=== PATIENT | female | born 1955 | race Caucasian/White ===

== ENCOUNTER 2019-08-26 09:13 | Outpatient (CLI) | payer MEDICARE, MEDICAID, SELFPAY ==
--- NOTE | 2019-08-26 09:21 | USCV_ITS ---
Homa Dugan Age: 64 Gender: F : 1955 Exam Date: 08/26/2019 09:38 Ordering Phys: Jing Espinal Technologist: Nilo Gallego Exam Location: [facility] [place] Indication: LT ICA OCCLUDED Risk Factors: Smoker Previous Vascular Surgery: R CEA Right Brachial BP: / Left Brachial BP: / Right Left Velocity (cm/s) Spectral Plaque Velocity (cm/s) Spectral Plaque Syst/Diast Broadening Syst/Diast Broadening 69.50/ 17.60 Prox CCA 42.70 / 11.80 40.40/ 12.40 Mid CCA 44.70 / 10.50 43.50/ 14.00 Distal CCA 33.50 / 5.90 104.45/39.35 Prox ICA / 124.90/44.70 Mid ICA / 123.60/44.70 Distal ICA / 52.80 ECA 166.20 1.91 ICA/CCA Antegrade Vertebral Antegrade 43.00/ 14.00 cm/s 40.80/ 12.10 cm/s Bi Subclavian Bi 134.0 198.2 0 0 FINDINGS Comparison:. 02/26/19. Prior right CEA. No right ICA stenosis. Known occluded left ICA. Left vertebral artery not idendtified. CONCLUSIONS Right ICA stenosis < 50%. Known occlusion left ICA. Dr. Drea Silva DO (Electronically Signed) Final Date: 26 August 2019 12:59 S
== END 2019-08-26 09:14 | disposition home or self-care (01) ==
PROVIDERS: Family Provider Internal Medicine; PCP Internal Medicine; Visit Provider Nurse Practitioner Family
DX: I65.23 Occlusion and stenosis of bilateral carotid arteries (principal)
CPT/HCPCS: 93880

== ENCOUNTER 2019-08-26 15:57 | Outpatient (CLI) | payer MEDICARE, MEDICAID, SELFPAY ==
--- NOTE | 2019-08-26 | XR_ITS ---
WS: [id number] Right knee, 2 views, 08/26/2019 Clinical Data: KNEE PAIN RIGHT Comparison: Right knee, 07/16/2013 Findings: No fractures or dislocations are seen. The joint spaces are normal. The patella is intact. The soft t issues are unremarkable. There is calcification in the charles of the superficial femoral and popliteal arteries. XR/XR knee RT 1-2V [id number] Impression: Negative right knee.
--- NOTE | 2019-08-26 | XR_ITS ---
WS: [id number] Right hip, AP and frog-leg views, 08/26/2019 Clinical Data: RIGHT HIP PAIN Comparison: Right hip, 07/16/2013. Findings: No fractures or dislocations are seen. The right hip joint is intact. The soft tissues are not remark able. The adjacent pelvis is normal. There is calcification in the charles of the superficial femoral and deep femoral arteries. XR/XR hip RT 2-3V wo/w pel* [id number] Impression: Negative right hip.
== END 2019-08-26 15:58 | disposition home or self-care (01) ==
LOC: RADOUTREAD 16:00
PROVIDERS: Family Provider Internal Medicine; PCP Internal Medicine; Visit Provider Internal Medicine
DX: Z76.89 Persons encountering health services in other specified circumstances (principal)

== ENCOUNTER 2019-09-04 07:29 | Outpatient (CLI) | payer MEDICARE, MEDICAID, SELFPAY ==
[2019-09-04 07:46] VITALS: BMI 34.1
--- NOTE | 2019-09-04 07:58 | ECG_ITS ---
NAME OF STUDY: LEXISCAN SESTAMIBI STRESS TEST INDICATION: Shortness of Breath NOTE: Please note that this is the electrocardiogram portion of the Lexiscan/Sestamibi stress test. The perfusion scan will be documented separately. DATA: Baseline heart rate was 59 beats per minute. Baseline blood pressure was 208/90 mmHg. Target heart rate was 156. Maximum heart rate achieved was 116. which was 74% of the predicted target heart rate. Maximum blood pressure was 208/101 millimeters of mercury. The reason for ending the test was completion of the protocol. The patient experienced shortness of breath which was then resolved at the end of the test ELECTROCARDIOGRAM: BASELINE: Sinus bradycardia. Normal axis. Otherwise, no ST-T changes suggestive of ischemia noted. No arrhythmia noted. EXERCISE: After Lexiscan injection, no ST-T changes suggestive of ischemic noted. No arrhythmia noted. CONCLUSION: Please note due to baseline abnormality of the EKG specificity and sensitivity of the EKG portion of LexiScan MIBI stress test will be low 1. EKG not suggestive of ischemia 2. Lexiscan injection unremarkable. Patient is hypertensive 3. Perfusion scan will be documented separately. Electronically Signed On 09-09-2019 21:36:04 TEST KITCHEN HOME ECONOMIST by Wendy Boudreaux M.D. [id number]
--- NOTE | 2019-09-04 07:58 | NMCV_ITS ---
NM michelle perf SPECT r/s* [id number] Homa Dugan Age: 64 Gender: F : 1955 Exam Date: 09/04/2019 09:02 Ordering Phys: Wendy Boudreaux MD ([email or web address]) Technologist: TWILA Tran Exam [facility]: [facility] Indications: SOB STRESS TEST [facility] IMAGE PROTOCOL Rest/Stress 1 Lexiscan Day Radiopharmaceutical Dose (mCi) Administration Site Administered by Rest: Tc-99m 10.9 IV TWILA Webster Sestamibi Stress:Tc-99m 32.4 IV TWILA Webster Sestamibi Rest: 04-Sep-2019 60 Discovery 630 Stress: 04-Sep-2019 30 Discovery 630 0.4mg Lexiscan. Supine position only as patient was unable to lay prone. SPECT RESULTS Technical Quality: Excellent Raw Data Analysis: Normal Image Corrections: No attenuation or motion correction applied Summed Stress Score: 2 Summed Rest Score: 0 Summed Difference Score: 2 PERFUSION FINDINGS FUNCTIONAL RESULTS (calculated via Gated SPECT) Stress Image LV EF (%): 73 Stress EDV (mL):66 TID: 0.77 Stress ESV (mL):18 Rest Image LV EF (%): 66 FUNCTIONAL FINDINGS: Data appeared to be small area of mild reversibility noted in basal later and inferoapical wall on the stress images however patient was not able to perform the prone images therefore cannot rule out artifact. IMPRESSIONS This study is negative for ischemia. EKG segment will be documented separately. Wendy Boudreaux MD (Electronically Signed) Final Date: 05 September 2019 11:41 S
--- NOTE | 2019-09-04 09:37 | SUR.PREOP ---
Patient reports no pain or discomfort prior to the start of the procedure.
[2019-09-04] MEDS: regadenoson 0.4 Mg/5 ml Syringe IVP (09:41)
[2019-09-04 09:49] VITALS: BP 147/99; PULSE 78
== END 2019-09-04 07:30 | disposition home or self-care (01) ==
LOC: CDL 07:29
PROVIDERS: Family Provider Internal Medicine; PCP Internal Medicine; Visit Provider Internal Medicine Cardiovascular Disease
DX: R06.02 Shortness of breath (principal); R00.1 Bradycardia, unspecified
CPT/HCPCS: 78452; 93017; A9500; J2785

== ENCOUNTER 2020-08-24 06:00 | Outpatient (RCR) | payer MEDICARE, MEDICAID, SELFPAY | END 2020-09-18 23:59 | disposition home or self-care (01) | LOC: SPT 06:00 | PROVIDERS: PCP Internal Medicine; Referring Provider Physician Assistant; Visit Provider Physician Assistant | DX: M53.3 Sacrococcygeal disorders, not elsewhere classified (principal) | CPT/HCPCS: 97110; 97140; 97163 ==

== ENCOUNTER 2020-09-19 06:00 | Outpatient (RCR) | payer MEDICARE, MEDICAID, SELFPAY | END 2020-10-19 23:59 | disposition home or self-care (01) | LOC: SPT 06:00 | PROVIDERS: PCP Internal Medicine; Referring Provider Physician Assistant; Visit Provider Physician Assistant | DX: M53.3 Sacrococcygeal disorders, not elsewhere classified (principal) | CPT/HCPCS: 97110; 97140; 97164; G0283 ==

== ENCOUNTER 2020-10-20 06:00 | Outpatient (RCR) | payer MEDICARE, MEDICAID, SELFPAY | END 2020-11-18 23:59 | disposition home or self-care (01) | LOC: SPT 06:00 | PROVIDERS: PCP Internal Medicine; Referring Provider Physician Assistant; Visit Provider Physician Assistant | DX: M53.3 Sacrococcygeal disorders, not elsewhere classified (principal) | CPT/HCPCS: 97110; 97140; G0283 ==

== ENCOUNTER → 2021-05-04 10:50 | Outpatient (BNVA) | payer MEDICARE, MEDICAID, SELFPAY | PROVIDERS: PCP Internal Medicine; Visit Provider Nurse Practitioner Family | DX: R50.9 Fever, unspecified (principal); J98.8 Other specified respiratory disorders; R05.9 Cough, unspecified | CPT/HCPCS: 87635 ==

== ENCOUNTER → 2021-11-13 13:20 | Outpatient (BNVA) | payer MEDICARE, MEDICAID, SELFPAY | PROVIDERS: PCP Internal Medicine; Visit Provider Internal Medicine Cardiovascular Disease | DX: I65.23 Occlusion and stenosis of bilateral carotid arteries (principal); I10 Essential (primary) hypertension; I25.10 Atherosclerotic heart disease of native coronary artery without angina pectoris; K21.9 Gastro-esophageal reflux disease without esophagitis; Z86.73 Personal history of transient ischemic attack (TIA), and cerebral infarction without residual deficits; E78.5 Hyperlipidemia, unspecified; R00.2 Palpitations; F17.290 Nicotine dependence, other tobacco product, uncomplicated | CPT/HCPCS: 99214 ==

== ENCOUNTER 2022-01-25 10:10 | Outpatient (CLI) | payer MEDICARE, MEDICAID, SELFPAY ==
--- NOTE | 2022-01-25 11:00 | USCV_ITS ---
Homa Dugan Age: 66 Gender: F : 1955 Exam Date: 01/25/2022 10:25 Ordering Phys: Gabby Vasquez MD ([email or web address]) Technologist: DALY Exam Location: [facility] [place] Indication: EVAL FOR CAROTID STENOSIS. Risk Factors: Previous Vascular Surgery: Right Brachial BP: / Left Brachial BP: / Right Left Velocity (cm/s) Spectral Plaque Velocity (cm/s) Spectral Plaque Syst/Diast Broadening Syst/Diast Broadening 64.50/ 18.60 Prox CCA 61.10 / 11.20 46.60/ 16.30 Mid CCA 59.20 / 7.90 47.40/ 17.10 Distal CCA 62.40 / 9.20 57.40/ 21.10 Prox ICA / 115.70/44.70 Mid ICA / 103.60/36.30 Distal ICA / 198.20 ECA 123.50 1.79 ICA/CCA Antegrade Vertebral Antegrade 46.10/ 13.70 cm/s 60.50/ 17.70 cm/s Tri Subclavian Tri 158.3 87.20 0 CONCLUSIONS No changes since 09/10 Prior Right CEA Known LEFT ICA occlusion Right ICA stenosis <50%. Chronic LEFT ICA occlusion Normal antegrade Doppler flow noted in the right vertebral artery. Normal antegrade Doppler flow noted in the right vertebral artery. Vega Thorpe MD (Electronically Signed) Final Date: 25 January 2022 11:08 S
== END 2022-01-25 10:11 | disposition home or self-care (01) ==
LOC: RAD 10:10
PROVIDERS: PCP Internal Medicine; Visit Provider Internal Medicine Cardiovascular Disease
DX: I65.22 Occlusion and stenosis of left carotid artery (principal)
CPT/HCPCS: 93880

== ENCOUNTER → 2022-07-06 09:19 | Outpatient (BNVA) | payer MEDICARE, MEDICAID, SELFPAY | PROVIDERS: PCP Internal Medicine; Visit Provider Internal Medicine Cardiovascular Disease | DX: R06.02 Shortness of breath (principal); R07.9 Chest pain, unspecified; I25.10 Atherosclerotic heart disease of native coronary artery without angina pectoris; I10 Essential (primary) hypertension; Z86.73 Personal history of transient ischemic attack (TIA), and cerebral infarction without residual deficits; F17.290 Nicotine dependence, other tobacco product, uncomplicated | CPT/HCPCS: 99214 ==

== ENCOUNTER 2022-10-04 06:52 | Outpatient (CLI) | payer MEDICARE, MEDICAID, SELFPAY ==
[2022-10-04 07:04] VITALS: BMI 29.8
--- NOTE | 2022-10-04 07:04 | ECG_ITS ---
[facility] Test Date: 2022-10-04 Pat Name: Homa Dugan Department: Room: Gender: Female Launderette Attendant: Mera Templeton : 1955 Requested By: Gabby Vasquez Order Number: [id number] Truman MD: Sendy Allison M.D. Interpretive Statements NAME OF STUDY: LEXISCAN SESTAMIBI STRESS TEST INDICATION: Chest Pain, PROCEDURE: At the baseline, the EKG revealed normal sinus rhythm with a poor R wave progression. The baseline heart was 64 bpm with a blood pressue of 153/76 mm of Hg Lexiscan was infused over a period of 20 seconds. A total of 0.4 milligrams of Lexiscan was infused. The stress phase was continued for a total of 5 minutes. Heart rate at the end of the stress phase was 86 bpm with a blood pressure 116/75 mm of Hg. The EKG at the peak infusion revealed no significant changes. Sestamibi was injected 20 seconds after the Lexiscan infusion. Heart rate at the end of the recovery phase was 84 bpm with a blood pressure of 116/71 mm of Hg. CONCLUSION: 1. No significant EKG changes with the LexiScan infusion 2. No LexiScan induced chest pain or cardiac arrhythmia 3. Normal blood pressure and heart rate response 4. Sestamibi/sestamibi perfusion scan pending; see separate report. Electronically Signed On 10-05-2022 15:31:36 CDT by Sendy Allison M.D. [id number]
--- NOTE | 2022-10-04 07:05 | NMCV_ITS ---
NM michelle perf SPECT r/s* [id number] Homa Dugan Age: 67 Gender: F : 1955 Exam Date: 10/04/2022 08:07 Ordering Phys: Gabby Vasquez MD ([email or web address]) Technologist: TWILA Tran Exam Location: [facility] Indications: SHORTNESS OF BREATH STRESS TEST Please see separate stress test report in [facility] for full findings IMAGE PROTOCOL Rest/Stress 1 Lexiscan Day Radiopharmaceutical Dose (mCi) Administration Site Administered by Rest: Tc-99m 10.7 IV TWILA Webster Sestamibi Stress:Tc-99m 32.9 IV TWILA Webster Sestamibi Rest: 04-Oct-2022 60 Discovery 630 Stress: 04-Oct-2022 30 Discovery 630 0.4mg Lexiscan. Supine position only as patient was unable to lay prone. SPECT RESULTS Technical Quality: Excellent Raw Data Analysis: Normal Image Corrections: No attenuation or motion correction applied Summed Stress Score: 4 Summed Rest Score: 2 Summed Difference Score: 2 PERFUSION FINDINGS Small area of slightly decreased tracer uptake in the mid inferolateral, apical lateral, apical inferior and LV apex. Subtle area of reversibility was noted in the apical inferior and LV apex. FUNCTIONAL RESULTS (calculated via Gated SPECT) Stress Image LV EF (%): 67 Stress EDV (mL):70 TID: 1.36 Stress ESV (mL):23 FUNCTIONAL FINDINGS: Segmental wall motion analysis revealing no gross wall motion normalities. IMPRESSIONS 1. Myocardial perfusion imaging revealing small area of slightly decreased tracer uptake in the inferolateral and apical regions with a subtle area of reversibility, suggesting myocardial scarring in the distribution of the left circumflex artery/right coronary artery with a very small area of radha- infarction ischemia. 2. Normal LV ejection fraction of 67%. 3. LV wall motion analysis revealing no gross wall motion abnormalities. 4. Normal LV volume 5. Elevated transient ischemic dilatation ratio may suggest endocardial ischemia. However the positive predictive value of this finding is limited. Compared to the study from 09/04/2019, the area of ischemia appears to be new. Apparently the SPECT imaging did not show any significant ischemia. Clinical correlation is recommended Dr Sendy Allison MD FAC (Electronically Signed) Final Date: 04 October 2022 12:40 S
[2022-10-04] MEDS: regadenoson 0.4 Mg/5 ml Syringe IVP (08:35)
[2022-10-04 09:03] VITALS: BP 116/71; PULSE 85
== END 2022-10-04 06:53 | disposition home or self-care (01) ==
PROVIDERS: PCP Internal Medicine; Visit Provider Internal Medicine Cardiovascular Disease
DX: R06.02 Shortness of breath (principal); R07.9 Chest pain, unspecified
CPT/HCPCS: 36415; 78452; 93017; 96374; A9500; J2785

== ENCOUNTER 2022-10-08 14:05 | Outpatient (CLI) | payer MEDICARE, MEDICAID, SELFPAY ==
--- NOTE | 2022-10-08 14:27 | MM_ITS ---
WS: [id number] BILATERAL 3D TOMOSYNTHESIS DIGITAL SCREENING MAMMOGRAPHY WITH CAD CLINICAL INFORMATION: SCREENING HISTORY: Screening mammogram. No current complaints. COMPARISON: 2011 TECHNIQUE: Bilateral CC and MLO views. FINDINGS: Scattered fibroglandular densities bilaterally. No suspicious focal mass, asymmetry, calcifications, or architectural distortion. No evidence of malignancy. Punctate and lucent centered calcifications. Vascular calcification. MM/[place] [id number] IMPRESSION: BI-RADS: 2-Benign FOLLOW UP: 1 Year Follow-up Recommend return to annual screening mammography.
== END 2022-10-08 14:06 | disposition home or self-care (01) ==
LOC: RAD 14:06
PROVIDERS: PCP Internal Medicine; Visit Provider Physician Assistant
DX: Z12.31 Encounter for screening mammogram for malignant neoplasm of breast (principal)
CPT/HCPCS: 77063; 77067

== ENCOUNTER 2022-10-10 09:26 | Outpatient (CLI) | payer MEDICARE, MEDICAID, SELFPAY ==
--- NOTE | 2022-10-10 09:44 | CT_ITS ---
WS: [id number] LDCT LUNG CANCER SCREENING TECHNIQUE: Noncontrast CT of the chest with coronal and sagittal reformatted images. CLINICAL INFORMATION: HX OF TOBACCO USE COMPARISON: CT chest 12 DLP: 69.99 mGy.cm DIvol: Mean CTDIvol: 1.60 (mGy) All CT scans at [facility] use at least one of these dose optimization techniques: automat ed exposure control; mA and/or kV adjustment per patient size (includes targeted exams where dose is matched to clinical indication); or iterative reconstruction. FINDINGS: Moderate chronic emphysematous changes. Slight bibasilar atelectasis. A few calcified granu claire. No suspicious pulmonary parenchymal abnormalities. Cardiomegaly. Normal caliber thoracic aorta. Aortic calcification. Coronary calcification. No axillar y lymphadenopathy. No mediastinal or hilar lymphadenopathy. Calcified anterior mediastinal and subcar inal lymph nodes. Adrenal glands are normal. Normal GE junction. Mild thoracic kyphosis. CT/CT lung screening [id number] IMPRESSION: LUNG-RADS: 2-Benign Appearance or Behavior FOLLOW UP: 12 Month: Continue annual screening with LDCT
== END 2022-10-10 09:27 | disposition home or self-care (01) ==
LOC: RAD 09:28
PROVIDERS: PCP Internal Medicine; Visit Provider Physician Assistant
DX: Z12.2 Encounter for screening for malignant neoplasm of respiratory organs (principal); Z87.891 Personal history of nicotine dependence
CPT/HCPCS: 71271

== ENCOUNTER 2023-02-13 14:59 | Outpatient (CLI) | payer MEDICARE, MEDICAID, SELFPAY ==
--- NOTE | 2023-02-13 15:14 | XR_ITS ---
WS: [id number] EXAMINATION: XR hip RT 2-3V wo/w pel* [id number] REASON FOR EXAM: fall COMPARISON: 08/15/2020 ORDER DATE: 02/13/2023 3:18 PM TECHNIQUE: Frontal internal/external rotation views of the right hip were obtained. X-RAY FINDINGS: There are no fractures or dislocations. Normal motion with internal/external rotation is present. Normal expected mild degenerative changes. Moderate vascular calcifications. XR/XR hip RT 2-3V wo/w pel* [id number] IMPRESSION: 1. No fractures or dislocations of the right hip. 2. Normal motion with internal/external rotation.
== END 2023-02-13 15:00 | disposition home or self-care (01) ==
LOC: LAB 15:05
PROVIDERS: PCP Internal Medicine; Visit Provider Registered Nurse Neonatal Intensive Care
DX: M25.551 Pain in right hip (principal)
CPT/HCPCS: 73502

== ENCOUNTER → 2023-06-05 15:15 | Outpatient (BNVA) | payer MEDICARE, MEDICAID, SELFPAY | PROVIDERS: PCP Internal Medicine; Visit Provider Internal Medicine Cardiovascular Disease | DX: R06.02 Shortness of breath (principal); I65.23 Occlusion and stenosis of bilateral carotid arteries; I10 Essential (primary) hypertension; I25.10 Atherosclerotic heart disease of native coronary artery without angina pectoris; R07.9 Chest pain, unspecified; E78.5 Hyperlipidemia, unspecified; K21.9 Gastro-esophageal reflux disease without esophagitis; F17.290 Nicotine dependence, other tobacco product, uncomplicated | CPT/HCPCS: 99214 ==

== ENCOUNTER 2023-07-03 07:16 | Outpatient (CLI) | payer MEDICARE, MEDICAID, SELFPAY ==
[2023-07-03] VITALS (23 sets, daily range): BP systolic 110–184; BP diastolic 53–104; PULSE 56–72; RESP 7–19; O2SAT 94–99; BMI 27.4
--- NOTE | 2023-07-03 07:30 | XACV_ITS ---
Exam Room: 2 Ht: 163 cm Wt: 73 kg BSA: 1.83 m2 Gender: Female : 1955 Any Known Allergies: No known allergies Exam Priority: Routine Procedure(s): Procedure Description: Diagnostic procedure Procedure Description: Coronary Angiography Diagnostic Cath Status: Elective Diagnostic Findings * 68-year-old woman with past medical history of hypertension hyperlipidemia and carotid artery stenosis was seen in office with worsening chest discomfort and exertional thoughts shortness of breath. 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 On account of her worsening symptoms, the decision was made to proceed with coronary angiogram for further evaluation. * Coronary angiography shows left dominance. * No disease noted in the Left Main, Left Anterior Descending, Right, or Circumflex coronary arteries. Conclusions 1. No disease noted in the Left Main, Left Anterior Descending, Right, or Circumflex coronary arteries. Recommendations * Continue current medical management and risk factor modification. Pressures Phase:Rest AO : 141 / 65 ( 95 ) @ 9:16:00 AM 135 / 73 ( 100 ) @ 9:17:00 AM Clinical Evaluation EBL: 5mL-10mL Procedural Details Procedure Consent Obtained. Pre-Procedure Time Out. Identified patient by full name and date of as verbalized by the patient/guarantor. Does the consent match the physician's order: Yes. Accurate & Complete Informed Consent: Yes. Inpatient/Outpatient History & Physical on Chart: Yes. If H&P is completed, is and addenduem needed: No; If yes, is the addendum complete: N/A. Visualize and Verify Site with Patient/Guarantor: N/A. Relevant Radiology Images available: Yes. Pre-op teaching completed and patient verbalized understanding. The risks, benefits, and alternatives of sedation and/or procedure were discussed by physician. The patient agrees to continue. Procedure started. Current Diagnosis : Chest Pain. [facility] Clinical Fraility Score: 4: Vulnerable. Facility Technician Indications: Worsening Angina. Chest Pain Symptom Assessment: Atypical Angina. Correct patient, site and procedure confirmed by cath team. Current diagnosis: Chest Pain. PERRLA. Strong, equal hand cryptologic technician bilaterally. Lungs clear x 5 lobes. IV Site on Arrival: 18 gauge in the left anticubital. IV Fluids: 0.9% NaCl at KVO. 0 mL infused prior to supervisor dental laboratory. Pre Procedural Pulses: bilateral dorsalis pedis was 3+. Pre Procedural Pulses: bilateral posterior tibial was Doppled. Pre Procedural Pulses: bilateral radial was 3+. Oxygen started at 2liters/min via nasal canula. right groin was prepped with chloroprep then draped in the usual sterile fashion. right radial was prepped with chloroprep then draped in the usual sterile fashion. Baseline sample Acquired. HR: 58 BPM. Physician arrived. Physician scrubbed in. Immediate Pre-Procedure Time Out. Correct Patient: Yes; Correct Procedure: Yes; Correct Site: Yes; Correct Patient Position: Yes; Correct Supplies: Yes; Dried Flammable Prep: Yes; Blood Products Available: N/A;. Lidocaine 1% infiltrated to the right radial. Arterial access obtained. A 5 afghan TIG catheter in over wire. Multiple views taken of left coronary artery. Catheter redirected to the RCA. Multiple views taken of right coronary artery. Catheter removed over the exchange wire. A TR Band was successful obtaining hemostatsis at the Right Radial artery insertion site. Post Procedure: Pulses reassessed and unchanged. PERRLA. Strong, equal hand cryptologic technician bilaterally. No VTE prophylaxis required. Medication's Wasted: Nitro = 49.8 mcg. Medication's Wasted: Heparin = 1000 units. Medication's Wasted: Other = Fentanyl 50mcg Versed 1 mg. Total IV fluids: 35 mL. Complications: None. Estimated blood loss: 5mL-10mL. Responsiveness - Normal response to verbal stimuli; alert and oriented, PERRLA. Airway - Unaffected, no intervention required; spontaneous ventilation. Circulation: W/N/L, pulses unchanged. Nausea/Vomiting: No. Procedure completed. Patient transferred by stretcher to CPRU. Vital chart was stopped. Access Site Site: Right Radial artery Sheath Size: 6 Fr Hemostasis Method: TR Band Hemostasis Success: Successful Procedure Medications Start: 9:08 AM Stop: 9:08 AM Medication: Versed Amount: 1 mg Route: I.V. Start: 9:08 AM Stop: 9:08 AM Medication: Fentanyl Amount: 50 mcg Route: I.V. Start: 9:11 AM Stop: 9:11 AM Medication: Nitrogylcerin Amount: 200 mcg Route: I.A. Start: 9:15 AM Stop: 9:15 AM Medication: Heparin Amount: 5000 units Route: I.V. I, the attending physician, have reviewed and verified all procedure medications. Yes, all medications given per verbal order History/Risk Factors Hypertension: Yes Dyslipidemia: Yes Peripheral Arterial Disease (PAD): No Myocardial Infarction (NV): No Obesity: No Renal Disease: No Tobacco Use: Current/Recent(w/in 1 year) Prior Interventions PCI: No CABG: No Valve Surgery: No Report Signatures Finalized by Gabby Vasquez MD on 07/03/2023 09:33 AM
[2023-07-03 07:42] LABS: Basophils % 0.3 %; Eosinophils % 0.5 %; Hematocrit 35.9 % (36-47); Lymphocytes # 2.3 10^3/uL (0.8-4.8); Lymphocytes % 39.3 %; Mean Corpuscular Hemoglobin 29.5 pg (27-33); Mean Corpuscular Volume 86.7 fl (85-98); Mean Platelet Volume 10.3 fL (7.4-10.4); Monocytes # 0.5 10^3/uL (0.2-0.9); Monocytes % 7.6 %; Neutrophils # 3.09 10^3/uL (1.8-7.7); Neutrophils % 52.1 %; Nucleated Red Blood Cells % 0 %; Platelet Count 189 10^3/cmm (157-399); Red Blood Count 4.14 10^6/uL (3.85-5.65); Red Cell Distribution Width 11.8 % (12.1-15.1); White Blood Count 5.93 10^3/uL (3.29-11.43)
[2023-07-03] MEDS: aspirin 325 mg Tablet PO (07:45)
[2023-07-03] MEDS: diphenhydrAMINE 50 mg Capsule PO (07:45)
[2023-07-03 07:57] LABS: Anion Gap 17.2 (5-19); Blood Urea Nitrogen 23 mg/dL (8-23); Calcium 9.9 mg/dL (8.5-10.5); Carbon Dioxide 24 mmol/L (22-29); Chloride 103 mmol/L (98-107); Glomerular Filtration Rate 62.3 mL/min (90-130); Glucose 116 mg/dL (65-115); Osmolality Calculated 295 mOsm/kg (285-295); Potassium 4.2 mmol/L (3.5-5.1); Sodium 140 mmol/L (136-145)
--- NOTE | 2023-07-03 08:56 | W.PM.OPSUD ---
Surgery/Procedure H&P Update DATE OF PROCEDURE: July 03, 2023 DATE H&P PERFORMED: 06/05/23 H&P UPDATE INFORMATION: I have reviewed H&P completed within last 30 days, I have examined patient prior to procedure and No changes to prior documentation PREOP DIAGNOSIS: Worsening exertional dyspnea and chest pain PRIMARY INDICATION FOR PROCEDURE: Worsening exertional dyspnea and chest pain PLANNED PROCEDURE: Operation Date: 07/03/23 08:30 Proposed Procedures p Left heart cath 02502, R94.39(Left) - Gabby Vasquez MD PATIENT REASSESSED PRIOR TO SEDATION, WITH NO CHANGE NOTED: Yes PHYSICAL EXAM: alert, oriented x 3, clear to auscultation bilaterally and regular rate & rhythm AIRWAY EVAL/ANESTHESIA PLAN: normal airway, ASA III, Monitored Anesthesia, Local Anesthesia, Risks, benefits & alternatives of sedation and/or procedure discussed and Patient agrees to continue as planned
--- NOTE | 2023-07-03 09:35 | PC.NURSE ---
Recovery Pt arrived from post cath to CPRU 3. Breathing even and non-labored on room air. Pt denies pain. TR band observed to right wrist, no signs of bleeding or hematoma noted. Radial pulse palpable. Placed on bedside phototypesetting equipment monitor, family at bedside. Dr. Vasquez rounded and updated family on procedure. Nurse clarified NS orders verbally with physician, NS to run at 75ml/hr until discharge . Call light in reach.
--- NOTE | 2023-07-03 11:55 | PC.NURSE ---
BP Dr. Vasquez notified of consistent BP measurements 160's-180s systolic. Pt reports taking all BP medications this am. Received telephone orders to give Amlodipine 5mg PO X 1 dose.
[2023-07-03] MEDS: amlodipine 5 mg Tablet PO (12:01)
--- NOTE | 2023-07-03 12:51 | PC.NURSE ---
BP Dr. Vasquez notified for continuation of Htn. BP 184/104. Received telephone orders to administer 10mg IV hydralizine X 1 dose.
[2023-07-03] MEDS: hyDRALAzine 20 mg/mL INJ 1 mL 10 MG IVP (12:59)
--- NOTE | 2023-07-03 14:00 | PC.NURSE ---
TR band 1-2 ml air slowly released every 5 -15 minutes over 1.5 hrs. Prolonged TR band time due to elevated BP. TR band deflated and removed at 1345. Site asymptomatic, no signs of bleeding or hematoma. Site covered with bandaid. Educated pt and spouse signs and symptoms to monitor for and report. Verbalized understanding.
--- NOTE | 2023-07-03 14:46 | PC.NURSE ---
Discharged Discharge instructions given via printed packet and verbally. Pt and provided understanding through teach back and verbal . Right radial site asymptomatic. Clean dry and intact.Pt transported to private vehicle via wheelchair.
== END 2023-07-03 14:52 | disposition home or self-care (01) ==
PROVIDERS: PCP Internal Medicine; Visit Provider Internal Medicine Cardiovascular Disease
DX: R07.89 Other chest pain (principal); I10 Essential (primary) hypertension; E78.5 Hyperlipidemia, unspecified; I25.10 Atherosclerotic heart disease of native coronary artery without angina pectoris; Z79.82 Long term (current) use of aspirin; F17.290 Nicotine dependence, other tobacco product, uncomplicated; Z86.73 Personal history of transient ischemic attack (TIA), and cerebral infarction without residual deficits
CPT/HCPCS: 36415; 80048; 85025; 93454; 96361; 96365; 99152; 99153; C1769; C1887; C1894; J0360; J1644; J2250; J3010; J3490; J7030; Q0163; Q9967

== ENCOUNTER → 2023-07-10 09:23 | Outpatient (BNVA) | payer MEDICARE, MEDICAID, SELFPAY | PROVIDERS: PCP Internal Medicine; Visit Provider Nurse Practitioner Family | DX: Z09 Encounter for follow-up examination after completed treatment for conditions other than malignant neoplasm (principal); I25.10 Atherosclerotic heart disease of native coronary artery without angina pectoris | CPT/HCPCS: 36415; 80048; 99214 ==

== ENCOUNTER → 2023-12-04 13:50 | Outpatient (BNVA) | payer MEDICARE, SELFPAY | PROVIDERS: PCP Internal Medicine; Visit Provider Internal Medicine | DX: R06.02 Shortness of breath (principal); I65.23 Occlusion and stenosis of bilateral carotid arteries; I10 Essential (primary) hypertension; I25.10 Atherosclerotic heart disease of native coronary artery without angina pectoris; K21.9 Gastro-esophageal reflux disease without esophagitis; E78.5 Hyperlipidemia, unspecified; F17.290 Nicotine dependence, other tobacco product, uncomplicated | CPT/HCPCS: 99214 ==

== ENCOUNTER → 2024-06-17 15:16 | Outpatient (BNVA) | payer MEDICARE, SELFPAY | PROVIDERS: PCP Internal Medicine; Visit Provider Internal Medicine | DX: R06.02 Shortness of breath (principal); I65.23 Occlusion and stenosis of bilateral carotid arteries; I10 Essential (primary) hypertension; I25.10 Atherosclerotic heart disease of native coronary artery without angina pectoris; K21.9 Gastro-esophageal reflux disease without esophagitis; E78.5 Hyperlipidemia, unspecified; F17.290 Nicotine dependence, other tobacco product, uncomplicated | CPT/HCPCS: 99214 ==

== ENCOUNTER 2024-07-02 07:10 | Outpatient (CLI) | payer MEDICARE, SELFPAY ==
--- NOTE | 2024-07-02 07:15 | USCV_ITS ---
Homa Dugan Age: 69 Gender: F : 1955 Exam Date: 07/02/2024 07:24 Ordering Phys: Wenceslao Barone M.D ([email or web address]) Technologist: NESTOR Exam Location: [facility] [place] Indication: TIA Risk Factors: Previous Vascular Surgery: Right Brachial BP: / Left Brachial BP: / Right Left Velocity (cm/s) Spectral Plaque Velocity (cm/s) Spectral Plaque Syst/Diast Broadening Syst/Diast Broadening 90.60/ 16.70 Prox CCA 58.80 / 8.20 63.40/ 15.40 Mid CCA 104.20/ 13.30 46.30/ 15.00 Distal CCA 82.80 / 8.50 60.40/ 21.10 Prox ICA 115.10/ 14.10 76.10/ 25.30 Mid ICA 69.20 / 4.90 94.90/ 37.30 Distal ICA 63.80 / 8.70 48.30 ECA 162.90 1.30 ICA/CCA 1.40 Antegrade Vertebral Antegrade 57.00/ 10.10 cm/s 46.30/ 18.10 cm/s Tri Subclavian Tri 61.50 101.0 0 FINDINGS Comparison: none available. No significant elevation of systolic or diastolic velocities. Waveforms are normal. Mild carotid atherosclerosis. CONCLUSIONS Bilateral ICA stenosis less than 50%. Dr. Drea Silva DO (Electronically Signed) Final Date: 02 July 2024 10:11 S
== END 2024-07-02 07:11 | disposition home or self-care (01) ==
LOC: RAD 07:11
PROVIDERS: PCP Internal Medicine; Visit Provider Internal Medicine
DX: G45.9 Transient cerebral ischemic attack, unspecified (principal)
CPT/HCPCS: 93880

== ENCOUNTER 2025-01-05 18:20 | Inpatient (IN) | payer MEDICARE, SELFPAY ==
--- NOTE | 2025-01-05 18:24 | XRR_ITS ---
PROCEDURE INFORMATION: Exam: XR Chest Exam date and time: 01/05/2025 6:34 PM Age: 69 years old Clinical indication: Other: Weakness TECHNIQUE: Imaging protocol: Radiologic exam of the chest. Views: 1 view. COMPARISON: CT lung screening [id number] 10/10/2022 9:52 AM FINDINGS: Lungs: Unremarkable. No consolidation. Pleural spaces: Unremarkable. No pleural effusion. No pneumothorax. Heart/Mediastinum: Unremarkable. No cardiomegaly. Vasculature: Aortic arch atherosclerotic calcification. Bones/joints: Unremarkable. XR/XR chest 1V portable [id number] IMPRESSION: No acute findings.
--- NOTE | 2025-01-05 18:24 | ECG_ITS ---
[facility]: [facility]25[facility] Pat Name: Homa Dugan Department: Room: Gender: Female Radio Electronics Technician: : 1955 Requested By: Belle Luciano Order Number: [id number] Truman MD: Sendy Allison M.D. Measurements Intervals [place] Rate: 130 P: 0 GA: 0 QRS: -10 QRSD: 85 T: 121 QT: 307 QTc: 453 Interpretive Statements Sinus tachycardia LEFT VENTRICULAR HYPERTROPHY AND ST-T CHANGE [VOLTAGE CRITERIA PLUS ST/T ABNORMALITY] Compared to ECG 02/02/2019 18:07:41 Sinus rhythm no longer present ST (T wave) deviation still present Electronically Signed On 01-07-2025 06:10:04 CDT by Sendy Allison M.D. [email or web address]
[2025-01-05 18:29] VITALS: BP 90/60; PULSE 85; RESP 18; TEMP 38.6; O2SAT 100
--- NOTE | 2025-01-05 18:52 | W.ED.NAVMDI ---
HPI - Nausea/Vomiting/Diarrhea General: Chief complaint: Nausea/Vomiting/Diarrhea Stated complaint: n/v/d/f, shakes, nose bleeds, dizzy, confusion Time Seen by Provider: 01/05/25 18:44 Source: patient Mode of arrival: ambulatory Limitations: no limitations History of Present Illness: 69yo female presents with significant other for evaluation of sudden onset of chills with fever and nausea that started approximately 3 hours prior to arrival. Significant other reports earlier today, she did have a nosebleed that took a while to get stopped. States they did go to lunch, then went home. Reports that once they got home she immediately got in the bed and under the covers as she stated that she was freezing. Reports a home forehead temperature of 103. They did not take any medications prior to arrival. Patient states she was feeling fine yesterday and earlier today. Significant other reports that her legs were aching last night, so he did rub muscle rub into them. No known sick contacts. Denies difficulty breathing, shortness of breath, chest pain, any other concerns at this time. Associated nausea: Yes Associated symtoms: Reports malaise and nausea; Denies chest pain Related Data Home Medications ?Medication ?Instructions ?Recorded ?Confirmed aspirin 81 mg tablet,delayed 81 mg PO DAILY 09/10/19 06/17/24 release (Adult Low Dose Aspirin) celecoxib 200 mg capsule 200 mg PO BID 09/10/19 06/17/24 desvenlafaxine succinate 25 mg 25 mg PO DAILY 09/10/19 06/17/24 tablet,extended release 24 hr gabapentin 800 mg tablet 800 mg PO TID 09/10/19 06/17/24 hydrocodone 10 mg-acetaminophen 1 tab PO Q6H PRN Pain 09/10/19 06/17/24 325 mg tablet amlodipine 5 mg tablet 5 mg PO DAILY 12/04/23 06/17/24 Previous Rx's ?Medication ?Instructions ?Recorded nitroglycerin 0.4 mg sublingual 0.4 mg sublingual Q5M PRN chest 06/05/23 tablet pain #30 tabs clopidogrel 75 mg tablet 75 mg PO DAILY #90 tabs 04/13/24 isosorbide mononitrate 30 mg 30 mg PO BID #180 tabs 06/04/24 tablet,extended release 24 hr atorvastatin 40 mg tablet 40 mg PO DAILY #90 tabs 09/18/24 losartan 50 mg tablet 100 mg (2 x 50 mg) PO DAILY #90 09/18/24 tabs metoprolol tartrate 25 mg tablet 25 mg PO BID #180 tabs 09/18/24 Allergies Allergy/AdvReac Type Severity Reaction Status Date / Time No Known Allergies Allergy Verified 06/17/24 15:21 Review of Systems Const: Reports: fever(s), chills, body aches and malaise ENMT: Denies: throat pain Card: Denies: chest pain Resp: Denies: dyspnea GI: Reports: nausea; Denies: abdominal pain, vomiting or diarrhea : Denies: flank pain or difficulty voiding Musc: Denies: neck pain PFSH ED PFSH: Medical History RYNE on CPAP Hyperlipidemia Bilateral carotid artery stenosis TIA (transient ischemic attack) GERD (gastroesophageal reflux disease) Arthritis Anxiety and depression Chronic back pain Palpitation CAD (coronary artery disease) HTN (hypertension) COPD (chronic obstructive pulmonary disease) Surgical History History of carotid endarterectomy H/O thyroidectomy H/O tubal ligation Social History Smoking and tobacco/nicotine status: current every day tobacco/nicotine user (vaping) e-cigarettes Alcohol intake: never Substance/Drug Use: never Lives independently: Yes Household members: spouse Housing: House Marital status: Physical Exam Const: COMMON NORMALS: no acute distress, patient oriented x3 and alert GENERAL APPEARANCE: cooperative and frail appearing ORIENTATION/CONSCIOUSNESS: Yes awake OTHER: Patient is sitting upright on the stretcher in no acute distress. She is able to give history with assistance from significant other. She is interactive with exam appropriately. No other family at bedside HENMT: COMMON NORMALS: normocephalic, atraumatic, TM's normal bilaterally and Normal external nose present HEAD & SCALP: normocephalic and atraumatic NOSE: Normal external nose present TYMPANIC MEMBRANE: TM's normal bilaterally MOUTH: Normal oral and palatal mucosa present THROAT: posterior oropharynx normal Chest: CHEST: Yes Symmetrical chest wall rise Resp: COMMON NORMALS: normal respiratory effort and clear to auscultation bilaterally AUSCULTATION: clear to auscultation bilaterally Cardio: RATE: tachycardic (121) GI: COMMON NORMALS: Soft to palpation and non-tender PALPATION: Yes Soft to palpation : COMMON NORMALS: Yes no CVA tenderness BLADDER/KIDNEY EXAM: Yes no CVA tenderness Back/Pelvis: COMMON NORMALS: no CVA tenderness Neuro: COMMON NORMALS: patient oriented x3 SENSORIUM/ORIENTATION: Yes alert Psych: COMMON NORMALS: cooperative Course ED course: EKG concerning for A flutter, appears to be Sinus Tachycardia Reevaluation(s): Reevaluation #1: Awaiting UA. Patient does not have any known kidney issues. She does state she had an embedded tick that was removed about a week ago. Discussed with patient and significant other concern of possible tick illness as well as the acute kidney injury. Awaiting UA and repeat lactic for likely admission Time: 22:08 Vital Signs: Vital signs: Vital Signs Temperature 101.4 F H 01/05/25 18:29 Pulse Rate 110 H 01/05/25 23:32 Respiratory Rate 18 01/05/25 23:32 Blood Pressure 94/52 01/05/25 23:32 Pulse Oximetry 92 01/05/25 23:32 Oxygen Delivery Me thod Room Air 01/05/25 23:32 MDM - Nausea/Vomiting/Diarrhea Medical Decision Making 69yo female presents with significant other for evaluation of sudden onset of chills with fever and nausea that started approximately 3 hours prior to arrival. Patient did have a nosebleed earlier in the day. Her legs were cramping last night, but otherwise she felt fine. Denies cough, difficulty breathing, shortness of breath, chest pain, abdominal pain, vomiting, any other concerns at this time. Patient is mildly ill-appearing, but nontoxic. Tachycardia at 121 upon exam with a blood pressure of 139/68. Leukopenia with a white blood cell count of 2.34. Thrombocytopenia with a platelet count of 124. Elevated AST and ALT with a chronically elevated alk phos. The combination of these labs are concerning for tickborne illness. Creatinine is elevated at 1.4 with a previous of 1.0 on 07/10/2023. GFR is noted to be 37.3 where her previous was 55.1 on 07/10/2023. Patient does not report known chronic kidney disease. Additionally, lactic acid is elevated at 3.7 with a repeat lactic acid of 4.2 after 2400 mL normal saline. UA is nitrite positive with trace leukocytes and 4+ bacteria. Influenza A/B, COVID-19, and RSV not detected. Discussed these findings with patient and family. Recommend admission to the hospital for likely tick illness as well as UTI and possible LEEANNE. Patient and family are agreeable with plan for admission. Discussed case with Dr. Dietrich, she is agreeable with plan for admission Medical Records I reviewed the patient's medical records. Lab Data I reviewed the patient's lab results. 01/05/25 19:08 01/05/25 19:08 Radiology Impressions Chest X-Ray 01/05/25 18:24 IMPRESSION: No acute findings. Laboratory Results WBC 2.34 10^3/uL (3.29-11.43) L 01/05/25 19:08 RBC 3.91 10^6/uL (3.85-5.65) 01/05/25 19:08 Hgb 11.30 g/dL (11.27-16.99) 01/05/25 19:08 Hct 34.3 % (36-47) L 01/05/25 19:08 MCV 87.7 fl (85-98) 01/05/25 19:08 MCH 28.9 pg (27-33) 01/05/25 19:08 MCHC 32.9 g/dL (30-55) 01/05/25 19:08 RDW 12.7 % (12.1-15.1) 01/05/25 19:08 Plt Count 124 10^3/cmm (157-399) L 01/05/25 19:08 MPV 9.8 fL (7.4-10.4) 01/05/25 19:08 Neut % (Auto) 88.0 % 01/05/25 19:08 Lymph % (Auto) 6.0 % 01/05/25 19:08 Bosque % (Auto) 0.4 % 01/05/25 19:08 Eos % (Auto) 0.0 % 01/05/25 19:08 Baso % (Auto) 0.0 % 01/05/25 19:08 Neut # (Auto) 2.06 10^3/uL (1.8-7.7) 01/05/25 19:08 Lymph # (Auto) 0.1 10^3/uL (0.8-4.8) L 01/05/25 19:08 [place] # (Auto) 0.0 10^3/uL (0.2-0.9) L 01/05/25 19:08 Eos # (Auto) 0.0 10^3/uL (0.0-0.8) 01/05/25 19:08 Baso # (Auto) 0.0 10^3/uL (0.0-0.1) 01/05/25 19:08 Nucleated RBC % (auto) 0 % 01/05/25 19:08 Nucleated RBCs # 0.0 /100WBC 01/05/25 19:08 Sodium 141 mmol/L (136-145) 01/05/25 19:08 Potassium 3.7 mmol/L (3.5-5.1) 01/05/25 19:08 Chloride 103 mmol/L (98-107) 01/05/25 19:08 Carbon Dioxide 21 mmol/L (22-29) L 01/05/25 19:08 Anion Gap 20.7 (5-19) H 01/05/25 19:08 BUN 22 mg/dL (8-23) 01/05/25 19:08 Creatinine 1.4 mg/dL (0.5-0.9) H 01/05/25 19:08 GFR Calculation 37.3 mL/min (90-130) L 01/05/25 19:08 Glucose 110 mg/dL (65-115) 01/05/25 19:08 Calculated Osmolality 296 mOsm/kg (285-295) H 01/05/25 19:08 Lactic Acid 3.7 mmol/L (0.5-2.2) H 01/05/25 19:08 Lactic Acid (Sepsis) 4.2 mmol/L (0.5-2.2) H* 01/05/25 21:59 Calcium 9.8 mg/dL (8.5-10.5) 01/05/25 19:08 Total Bilirubin 0.5 mg/dL (0.15-1.2) 01/05/25 19:08 AST 153 U/L (0-32) H 01/05/25 19:08 ALT 85 U/L (0-33) H 01/05/25 19:08 Alkaline Phosphatase 114 U/L (35-105) H 01/05/25 19:08 Total Protein 7.4 g/dL (6.6-8.7) 01/05/25 19:08 Albumin 4.2 g/dL (3.5-5.2) 01/05/25 19:08 Globulin 3.2 g/dL (1.3-4.6) 01/05/25 19:08 Lipase 33 U/L (13-60) 01/05/25 19:08 Urine Color Yellow (Yellow) 01/05/25 22:05 Urine Appearance Clear (CLEAR) 01/05/25 22:05 Urine pH 5.5 (5-7) 01/05/25 22:05 Ur Specific [place] 1.008 (1.005-1.030) 01/05/25 22:05 Urine Protein Negative (Negative) 01/05/25 22:05 Urine Glucose (UA) Negative (Normal) 01/05/25 22:05 Urine Ketones Negative (Negative) 01/05/25 22:05 Urine Blood Negative (Negative) 01/05/25 22:05 Urine Nitrate Positive (Negative) A 01/05/25 22:05 Urine Bilirubin Negative (Negative) 01/05/25 22:05 Urine Urobilinogen 0.2 mg/dL (Negative) 01/05/25 22:05 Ur Leukocyte Esterase Trace (Negative) A 01/05/25 22:05 Urine RBC 0-2 /hpf (0-2) 01/05/25 22:05 Urine WBC 6-10 /hpf (0-5) 01/05/25 22:05 Ur Squamous Epith Cells 0-5 /hpf (0-5) 01/05/25 22:05 Amorphous Sediment Not Reportable 01/05/25 22:05 Urine Bacteria 4+ /hpf (NONE) H 01/05/25 22:05 Hyaline Casts 0.40 /lpf 01/05/25 22:05 Influenza A (PCR) Negative (Negative) 01/05/25 20:00 Influenza Type B (PCR) Negative (Negative) 01/05/25 20:00 RSV (PCR) Negative (Negative) 01/05/25 20:00 SARS-CoV-2 (PCR) Negative (Negative) 01/05/25 20:00 No radiology studies performed this visit Discharge Plan Discharge Patient Disposition: Admitted As Inpatient Clinical Impression: At high risk for tick borne illness, Acute UTI, Elevated lactic acid level Condition: Stable Coding Level of Care Code ED Chronometer Assembler for Myla Jaffe
[2025-01-05 19:22] LABS: Hematocrit 34.3 % (36-47); Lymphocytes # 0.1 10^3/uL (0.8-4.8); Mean Corpuscular HGB Conc 32.9 g/dL (30-55); Mean Corpuscular Hemoglobin 28.9 pg (27-33); Mean Corpuscular Volume 87.7 fl (85-98); Mean Platelet Volume 9.8 fL (7.4-10.4); Monocytes % 0.4 %; Neutrophils # 2.06 10^3/uL (1.8-7.7); Nucleated Red Blood Cells % 0 %; Platelet Count 124 10^3/cmm (157-399); Red Blood Count 3.91 10^6/uL (3.85-5.65); Red Cell Distribution Width 12.7 % (12.1-15.1); White Blood Count 2.34 10^3/uL (3.29-11.43)
[2025-01-05 19:23] VITALS: BP 129/71; PULSE 118; RESP 24; O2SAT 92
[2025-01-05] MEDS: acetaminophen 500 mg Tablet 1000 MG PO (19:39)
[2025-01-05 19:42] LABS: Slide Review Slide Review Perform
[2025-01-05 20:03] LABS: Alanine Aminotransferase 85 U/L (0-33); Albumin Level 4.2 g/dL (3.5-5.2); Alkaline Phosphatase 114 U/L (35-105); Anion Gap 20.7 (5-19); Aspartate Amino Transferase 153 U/L (0-32); Blood Urea Nitrogen 22 mg/dL (8-23); Calcium 9.8 mg/dL (8.5-10.5); Carbon Dioxide 21 mmol/L (22-29); Chloride 103 mmol/L (98-107); Creatinine Clr Calc Pharmacy 39.0941; Globulin 3.2 g/dL (1.3-4.6); Glomerular Filtration Rate 37.3 mL/min (90-130); Glucose 110 mg/dL (65-115); Lipase 33 U/L (13-60); Osmolality Calculated 296 mOsm/kg (285-295); Potassium 3.7 mmol/L (3.5-5.1); Sodium 141 mmol/L (136-145); Total Bilirubin 0.5 mg/dL (0.15-1.2); Total Protein 7.4 g/dL (6.6-8.7)
[2025-01-05 20:04] LABS: Lactic Sepsis W/Reflex 3.7 mmol/L (0.5-2.2)
[2025-01-05 20:46] LABS: Influenza A NEGATIVE (Negative); Influenza B NEGATIVE (Negative); Respiratory Syncytial Virus Ce NEGATIVE (Negative); SARS-CoV-2 PCR NEGATIVE (Negative)
[2025-01-05 21:02] LABS: Reflex Lactate Order REFLEX LACTIC ORDERD
[2025-01-05 22:11] VITALS: BP 145/101; PULSE 110; RESP 18; O2SAT 93
[2025-01-05 22:40] LABS: Bilirubin Urine Negative (Negative); Blood Urine Negative (Negative); Glucose Urine UA Negative (Normal); Ketones Urine Negative (Negative); Leukocyte Esterase Urine Trace (Negative); Nitrate Urine Positive (Negative); Protein Urine Negative (Negative); Specific Gravity, Urine 1.008 (1.005-1.030); Urine Appearance Clear (CLEAR); Urine Color Yellow (Yellow); Urobilinogen Urine 0.2 mg/dL (Negative); pH Urine 5.5 (5-7)
[2025-01-05 22:42] LABS: Add Urine Microscopic? YES; Bacteria Urine 4+ /hpf; RBC Urine 0-2 /hpf (0-2); Squamous Epithelial Cell Urine 0-5 /hpf (0-5)
[2025-01-05 22:52] LABS: Lactic Acid level (Lactate) 4.2 mmol/L (0.5-2.2)
[2025-01-05 22:54] LABS: Add Urine Culture? No
[2025-01-05 23:32] VITALS: BP 94/52; PULSE 110; RESP 18; O2SAT 92
[2025-01-05] MEDS: cefTRIAXone 2,000 mg SDV 2000 MG IVP (23:36)
[2025-01-06] VITALS (10 sets, daily range): BP systolic 91–142; BP diastolic 54–79; PULSE 90–115; RESP 16–18; TEMP 36.7–37.3; O2SAT 95–99; BMI 30.2
[2025-01-06] MEDS: doxycycline 100 MG in sodium chloride 0.9% (plus) 100 ML IV ×3 (00:17→23:30)
[2025-01-06] MEDS: HYDROcodone-acetaminophen 10-325 mg Tablet 1 TAB PO ×3 (00:17→20:44)
[2025-01-06] MEDS: sodium chloride 0.9% 1,000 ML 100 ML IV (00:19)
--- NOTE | 2025-01-06 01:58 | PM.HP ---
Providers/Chief Complaint Admitting Physician: Alona Yoo MD----patient seen in [facility] 12 midnight Primary Care Provider: Jerry Holloway MD Chief Complaint: n/v/d/f, shakes, nose bleeds, dizzy, confusion History of Present Illness Homa Dugan is a 69 year old female with medical history significant for high blood pressure hypercholesterolemia and CVA with left-sided hemiparesis and neuropathy. Patient had a deep-seated blood StUCKING TICK pulled away from her skin on the left side in her legs 5 days ago. No one knows how long the tick has been there. Today just 3 hours prior to presenting to the emergency room patient started having chills not feeling well at all and having fever. Patient upon presenting to the emergency room with the medical history lab studies were done and it was significant for ehrlichiosis. Patient has leukopenia anemia thrombocytopenia which are all classic of Ehrlichia. Patient also had UTI for which he emergency room had given ceftriaxone at a higher dose because of patient presentation. Temperature was 101.4 ?F patient was tachycardia likely because of temperature as well. I have seen and evaluated patient initiated doxycycline along with ceftriaxone just in case if patient's disease process have advanced more than we can imagine. Ceftriaxone will be a drug of choice for advanced tickborne illness however doxycycline will be drug of choice for any regular tICK borne illness. Patient went into LEEANNE and profound dehydration. This can be corrected by IV rehydration and continued treatment with the selected antibiotics. Review of Systems Narrative: System review appointing and got review where fairly unremarkable except for systemic illness of fever and metabolic derangement of thrombocytopenia leukopenia, anemia Medications/Allergies Home Medications ?Medication ?Instructions ?Recorded ?Confirmed ?Last Taken ?Type aspirin 81 mg tablet,delayed 81 mg PO DAILY 09/10/19 06/17/24 07/02/23 12:00 History release (Adult Low Dose Aspirin) celecoxib 200 mg capsule 200 mg PO BID 09/10/19 06/17/24 07/03/23 06:00 History desvenlafaxine succinate 25 mg 25 mg PO DAILY 09/10/19 06/17/24 07/02/23 21:00 History tablet,extended release 24 hr gabapentin 800 mg tablet 800 mg PO TID 09/10/19 06/17/24 07/03/23 06:00 History hydrocodone 10 mg-acetaminophen 1 tab PO Q6H PRN Pain 09/10/19 06/17/24 07/03/23 06:00 History 325 mg tablet nitroglycerin 0.4 mg sublingual 0.4 mg sublingual Q5M PRN chest 06/05/23 06/17/24 Unknown Rx tablet pain #30 tabs amlodipine 5 mg tablet 5 mg PO DAILY 12/04/23 06/17/24 Unknown History clopidogrel 75 mg tablet 75 mg PO DAILY #90 tabs 04/13/24 06/17/24 Unknown Rx isosorbide mononitrate 30 mg 30 mg PO BID #180 tabs 06/04/24 06/17/24 Unknown Rx tablet,extended release 24 hr atorvastatin 40 mg tablet 40 mg PO DAILY #90 tabs 09/18/24 Unknown Rx losartan 50 mg tablet 100 mg (2 x 50 mg) PO DAILY #90 09/18/24 Unknown Rx tabs metoprolol tartrate 25 mg tablet 25 mg PO BID #180 tabs 09/18/24 Unknown Rx Allergies Allergy/AdvReac Type Severity Reaction Status Date / Time No Known Allergies Allergy Verified 06/17/24 15:21 PFSH Acute PFSH: Medical History RYNE on CPAP Hyperlipidemia Bilateral carotid artery stenosis TIA (transient ischemic attack) GERD (gastroesophageal reflux disease) Arthritis Anxiety and depression Chronic back pain Palpitation CAD (coronary artery disease) HTN (hypertension) COPD (chronic obstructive pulmonary disease) Surgical History History of carotid endarterectomy H/O thyroidectomy H/O tubal ligation Social History Smoking and tobacco/nicotine status: current every day tobacco/nicotine user (vaping) e-cigarettes Alcohol intake: never Substance/Drug Use: never Lives independently: Yes Household members: spouse Housing: House Marital status: Vitals/I&O/Wt Last Vital Signs Temp 101.4 F H 01/05/25 18:29 Pulse 115 H 01/06/25 00:07 Resp 16 01/06/25 00:07 BP 99/54 01/06/25 00:07 Pulse Ox 95 01/06/25 00:07 O2 Del Method Room Air 01/05/25 23:32 01/05/25 01/05/25 01/06/25 14:59 22:59 06:59 Intake Total 2435.79 / 2435.79 Balance 2435.79 / 2435.79 Weight last 48 hrs Weight 81.193 kg Physical Exam Narrative: Generally patient looks well conversant with the at the bedside. Patient does not look toxic but does need to be treated for this tICK borne illness. HEENT normocephalic/atraumatic neck neck is supple cardiovascular heart rate is regular but tachycardic at 115. Lungs are clear abdomen soft nontender nondistended unremarkable extremities intact no edema has good pulses neurology he has no obvious focality lab studies lab studies reviewed and noted. And we have very textbook finding of a leak here leukopenia, anemia, thrombocytopenia. Data 01/05/25 19:08 01/05/25 19:08 Micro: Microbiology 01/05/25 19:10 Blood Culture - Preliminary Blood SPECIMEN COLLECTED 01/05/25 19:08 Blood Culture - Preliminary Blood SPECIMEN COLLECTED A&P Assessment and plan (1) Ehrlichiosis chafeensis (E. chafeensis): Ehrlichiosis - Patient is with leukopenia thrombocytopenia and anemia very cERCHLIAlassic ehrlichiosis TICK borne illness - Doxycycline initiated - IV hydration - Because of fever patient has been pancultured - ERCHLIA HAS been ordered for serial blood testing. lso be done from cerebrospinal fluid - ERCHLIA will be a send out lab. (2) Acute UTI: Urine microscopy done IV antibiotics initiated with ceftriaxone Follow culture and sensitivity and optimize accordingly (3) At high risk for tick borne illness: This is as per above ehrlichiosis treat accordingly with doxycycline (4) Elevated lactic acid level: Elevated lactic acid, indicative of tissue injury and dehydration Continue rehydration and continue to treat underlying condition (5) Dehydration: Gentle hydration with normal saline and monitor electrolytes and optimize accordingly follow interval change and rehydration (6) LEEANNE (acute kidney injury): LEEANNE Patient baseline creatinine is 1 all less than 1 today is 1.4 Treat underlying infection and this is going on at this time. Rehydrate patient for care. (7) HTN (hypertension): History of high blood pressure Continue patient blood pressure medication of amlodipine losartan metoprolol Plan GI and DVT prophylaxis in place with PPI and heparin respectively PDMP PDMP Reviewed: Last Reviewed 01/06/25 02:21 by Alona Yoo MD Attestations Medical Necessity Statement*: Patient with fever and indicative of anacusis evaluation this to midnights stay in the hospital for further optimization of care with abnormal liver enzymes leukopenia and thrombocytopenia to track for interval changes Coding Level of Care Code 46308 Diagnoses Ehrlichiosis chafeensis (E. chafeensis) A77.41 Acute UTI N39.0 At high risk for tick borne illness Z91.89 Elevated lactic acid level R79.89 Dehydration E86.0 LEEANNE (acute kidney injury) N17.9 Essential hypertension I10 Hypertension type: essential hypertension Time Spent (min) 60
[2025-01-06] MEDS: acetaminophen 325 mg Tablet 650 MG PO ×2 (02:41→23:28)
[2025-01-06] MEDS: morphine 4 mg/mL SDV 1 mL 2 MG IVP (02:41)
[2025-01-06 05:56] LABS: Basophils # 0.1 10^3/uL (0.0-0.1); Basophils % 0.3 %; Hematocrit 34.3 % (36-47); Lymphocytes # 0.2 10^3/uL (0.8-4.8); Lymphocytes % 0.9 %; Mean Corpuscular HGB Conc 32.1 g/dL (30-55); Mean Corpuscular Hemoglobin 28.5 pg (27-33); Mean Corpuscular Volume 88.9 fl (85-98); Mean Platelet Volume 10.4 fL (7.4-10.4); Monocytes # 0.2 10^3/uL (0.2-0.9); Monocytes % 0.9 %; Neutrophils # 17.15 10^3/uL (1.8-7.7); Neutrophils % 96.7 %; Nucleated Red Blood Cells % 0 %; Platelet Count 107 10^3/cmm (157-399); Red Blood Count 3.86 10^6/uL (3.85-5.65); White Blood Count 17.74 10^3/uL (3.29-11.43)
[2025-01-06 06:11] LABS: Estmated Average Glucose 117; Hemoglobin A1C 5.7 % (4.0-6.0)
[2025-01-06 06:21] LABS: Alanine Aminotransferase 81 U/L (0-33); Albumin Level 3.7 g/dL (3.5-5.2); Alkaline Phosphatase 91 U/L (35-105); Anion Gap 18.1 (5-19); Aspartate Amino Transferase 94 U/L (0-32); Blood Urea Nitrogen 22 mg/dL (8-23); Carbon Dioxide 18 mmol/L (22-29); Chloride 114 mmol/L (98-107); Chol HDL Ratio 3.33 mg/dL (0.0-4.40); Cholesterol 120 mg/dL (0-200); Creatinine Clr Calc Pharmacy 49.3828; Globulin 2.9 g/dL (1.3-4.6); Glomerular Filtration Rate 49.2 mL/min (90-130); Glucose 112 mg/dL (65-115); HDL Cholesterol 36 mg/dL (60-100); LDL Cholesterol Calculated 59 mg/dL (50-129); LDL HDL Ratio 1.64 RATIO (0.00-3.22); Magnesium 1.3 mg/dL (1.7-2.3); NT Pro B Type Natriuretic Pept 7309 pg/mL (0-125); Osmolality Calculated 308 mOsm/kg (285-295); Phosphorus 1.2 mg/dL (2.5-4.5); Potassium 3.1 mmol/L (3.5-5.1); Sodium 147 mmol/L (136-145); Total Bilirubin 0.2 mg/dL (0.15-1.2); Total Protein 6.6 g/dL (6.6-8.7); Triglycerides 126 mg/dL (0-150)
[2025-01-06 06:38] LABS: Lactic Sepsis W/Reflex 4.2 mmol/L (0.5-2.2)
[2025-01-06 07:37] LABS: Reflex Lactate Order REFLEX LACTIC ORDERD
--- NOTE | 2025-01-06 08:22 | PC.PHAR ---
Needed verification from [facility] on the losartan 50mg is 2 tablets (100mg) daily.
[2025-01-06] MEDS: sodium chloride 0.9% 1,000 ML 125 ML IV (08:30)
[2025-01-06] MEDS: docusate sodium 100 mg Capsule PO (08:30)
[2025-01-06] MEDS: pantoprazole DR 40 mg Tablet PO (08:30)
[2025-01-06] MEDS: heparin 5,000 unit/mL INJ 1 mL 5000 UNIT SUBCUT ×2 (08:30→20:49)
[2025-01-06] MEDS: clopidogrel 75 mg Tablet PO (10:41)
[2025-01-06] MEDS: potassium phosphate (mMol PO4) 30 MMOL in sodium chloride 0.9% (100 ml) 100 ML 25 MMOL IV (10:41)
[2025-01-06] MEDS: magnesium sulfate premix 2 GM/50 ML PIGGYBACK IV (10:41)
[2025-01-06] MEDS: aspirin 81 mg EC Tablet PO (10:41)
--- NOTE | 2025-01-06 10:42 | PC.CHAP ---
Pastoral Care Encounter/Spiritual Assessment Type of Contact [] Declined rn forensic visit [] Patient/Family/Request visit [] Outpatient visit [] Follow-up visit [] Physician referral [] Code/Alert [x] Routine visit [] Staff referral [] Actively dying [] Patient sleeping [x] Family support [] [] Out of room [] Palliative care [] [] Receiving care in room [] Pre-surgical visit [] Trauma [] Long length of stay [] ICU visit [] Other: Relational/Emotional Strength [x] Patient feels connected with others/family/visitors/staff [] Distress [] Loneliness/isolation [] Abandonment Spirituality of Patient [x] Person of Loly [] Attends Jehovah'S Witness of their Loly [x] Believes in Prayer [] Reads Bible or Spiritism materials [] There are Spiritual issues to be addressed Radiocommunications Technician Interventions [x] Prayer [x] Active listening [] Non-anxious presence [x] Spiritual/emotional support [] Crisis/trauma care [] Spiritual counseling [] Bereavement support [] Provided bereavement packet [] Provided Bible/devotional materials [] Provided toy/stuffed animal, coloring book to patient or family member [] Provided Communion [] Anointing/[place] [] Salvation [x] Completed spiritual assessment [] Other: Impact on Illness or Injury [] Angry [] Fearful [] Anxious [] Often cries [] Exhaustion [] Unable to work [] Unable to attend catholic [] Unable to walk/stand [] Unable to read [] Unable to drive [] Unable to eat/drink [] Unable to sleep [] Unable to be with family [] Patient intubated [] Other: Summary Time spent with patient 5 min
[2025-01-06 11:07] LABS: Acinetobacter baumannii Not Detected (NOT DETECT); Bacteroides fragilis Not Detected (NOT DETECT); CTX-M Not Detected (NOT DETECT); Citrobacter Not Detected (NOT DETECT); Cronobacter sakazakii Not Detected (NOT DETECT); Enterobacter cloacae complex Not Detected (NOT DETECT); Enterobacter non cloacae Not Detected (NOT DETECT); Fusobacterium necrophorum Not Detected (NOT DETECT); Fusobacterium nucleatum Not Detected (NOT DETECT); Haemophilus influenzae Not Detected (NOT DETECT); IMP Resistance Gene Not Detected (NOT DETECT); KPC Resistance Gene Not Detected (NOT DETECT); Klebsiella pneumoniae group Not Detected (NOT DETECT); Morganella morganii Not Detected (NOT DETECT); NDM Resistance Gene Not Detected (NOT DETECT); Neisseria meningitidis Not Detected (NOT DETECT); OXA Resistance Gene Not Detected (NOT DETECT); Pan Candida Not Detected (NOT DETECT); Pan Gram-Positive Not Detected (NOT DETECT); Proteus mirabilis Not Detected (NOT DETECT); Pseudomonas aeruginosa Not Detected (NOT DETECT); Salmonella Not Detected (NOT DETECT); Serratia Not Detected (NOT DETECT); Serratia marcescens Not Detected (NOT DETECT); Stenotrophomonas maltophilia Not Detected (NOT DETECT); VIM Resistance Gene Not Detected (NOT DETECT)
[2025-01-06] MEDS: dextrose 5% 1,000 ML 100 ML IV (15:04)
--- NOTE | 2025-01-06 15:29 | PC.NURSE ---
Late Medications: Doxycycline and D5% given late due to multiple electrolytes ordered in the AM that could not be mixed. Unable to establish another IV due to poor access.
[2025-01-06] MEDS: metoprolol tartrate 25 mg Tablet PO (18:01)
--- NOTE | 2025-01-06 19:38 | P.PN_ITS ---
Subjective 2 Subjective: She was admitted overnight. She is doing well today. Blood culture was positive for E. coli. Vitals/I&O/Wt Last Vital Signs Temp 99.2 F 01/06/25 16:00 Pulse 97 01/06/25 16:00 Resp 16 01/06/25 16:00 BP 117/76 01/06/25 16:00 Pulse Ox 98 01/06/25 16:00 O2 Del Method Room Air 01/06/25 16:00 01/06/25 01/06/25 01/06/25 06:59 14:59 22:59 Intake Total 355 / 2790.79 2155 / 2155 570 / 2725 Output Total 470 / 470 Balance 355 / 2790.79 1685 / 1685 570 / 2255 Weight last 48 hrs Weight 79.968 kg Weight 79.832 kg Weight 81.193 kg Physical Exam 2 Const: COMMON NORMALS: no acute distress and patient oriented x3 HENMT: COMMON NORMALS: normocephalic, atraumatic and moist oral mucous membranes HEAD & SCALP: normocephalic and atraumatic Eye: COMMON NORMALS: Equal, round and reactive pupils present, EOMs intact bilaterally and conjunctivae normal CONJUNCTIVA: Yes conjunctivae normal P UPIL: Yes Equal, round and reactive pupils present Neck/C-Spine: COMMON NORMALS: supple and no JVD Chest: COMMONS NORMALS: normal inspection of the chest Resp: COMMON NORMALS: normal respiratory effort Cardio: COMMON NORMALS: no JVD, regular rate, regular rhythm, S1 normal heart sound present, S2 normal heart sound present and No murmurs present (Cardio) RATE: regular rate RHYTHM: regular rhythm HEART SOUNDS: S1 normal heart sound present and S2 normal heart sound present GI: COMMON NORMALS: Normal to inspection, nondistended, normoactive bowel sounds present : COMMON NORMALS: Yes no CVA tenderness BLADDER/KIDNEY EXAM: Yes no CVA tenderness Back/Pelvis: COMMON NORMALS: no CVA tenderness Extremity: COMMON NORMALS: normal to inspection, full ROM and no pedal edema Neuro: COMMON NORMALS: patient oriented x3 Skin: COMMON NORMALS: no rashes or lesions noted GENERAL SKIN EXAM: no rashes or lesions noted Data 01/06/25 05:41 01/06/25 05:41 Micro: Microbiology 01/05/25 19:10 Blood Culture - Preliminary Blood NEGATIVE TO DATE 01/06/25 17:46 Blood Culture - Preliminary Blood SPECIMEN COLLECTED 01/05/25 19:08 Blood Culture - Preliminary Blood Escherichia coli A&P Assessment and plan (1) Ehrlichiosis chafeensis (E. chafeensis): Suspected ehrlichiosis - Patient is with leukopenia thrombocytopenia and anemia on admission very classic for ehrlichiosis TICK borne illness - Doxycycline continue - Type panel pending (2) Acute UTI: E. coli bacteremia likely seeded from urine Order urine culture Ceftriaxone (3) At high risk for tick borne illness: This is as per above ehrlichiosis treat accordingly with doxycycline (4) Elevated lactic acid level: Elevated lactic acid, indicative of tissue injury and dehydration Continue rehydration and continue to treat underlying condition (5) Dehydration: Gentle hydration with normal saline and monitor electrolytes and optimize accordingly follow interval change and rehydration (6) LEEANNE (acute kidney injury): LEEANNE Patient baseline creatinine is 1, 1.4 on admission ? Improving with IV fluids (7) HTN (hypertension): History of high blood pressure Continue patient blood pressure medication of continue amlodipine and metoprolol Holding losartan given LEEANNE Plan Hypernatremia ? Started D5W Hypokalemia Hypophosphatemia Hypomagnesemia ? Repleted; monitor GI and DVT prophylaxis in place with PPI and heparin respectively PDMP PDMP Reviewed: Not Reviewed Attestations 2 Medical Necessity Statement*: Patient requires continued hospitalization for IV fluids, IV antibiotics, and electrolyte monitoring Coding Level of Care Code Acute Code for [facility] Diagnoses Ehrlichiosis chafeensis (E. chafeensis) A77.41 Acute UTI N39.0 At high risk for tick borne illness Z91.89 Elevated lactic acid level R79.89 Dehydration E86.0 LEEANNE (acute kidney injury) N17.9 Essential hypertension I10 Hypertension type: essential hypertension
[2025-01-06] MEDS: gabapentin 400 mg Capsule 800 MG PO (20:42)
[2025-01-06] MEDS: sennosides 8.6 mg Tablet 17.2 MG PO (20:44)
[2025-01-06] MEDS: cefTRIAXone 2,000 mg SDV 2000 MG IVP (23:29)
[2025-01-07] VITALS (7 sets, daily range): BP systolic 97–119; BP diastolic 60–68; PULSE 87–101; RESP 16–17; TEMP 36.8–36.9; O2SAT 91–97
[2025-01-07 05:12] LABS: Hematocrit 34.6 % (36-47); Mean Corpuscular HGB Conc 32.7 g/dL (30-55); Mean Corpuscular Hemoglobin 28.5 pg (27-33); Mean Corpuscular Volume 87.2 fl (85-98); Mean Platelet Volume 10.4 fL (7.4-10.4); Platelet Count 94 10^3/cmm (157-399); Red Blood Count 3.97 10^6/uL (3.85-5.65); Red Cell Distribution Width 13.3 % (12.1-15.1); White Blood Count 18.57 10^3/uL (3.29-11.43)
[2025-01-07 05:20] LABS: Albumin Level 3.7 g/dL (3.5-5.2); Blood Urea Nitrogen 17 mg/dL (8-23); Calcium 8.9 mg/dL (8.5-10.5); Carbon Dioxide 20 mmol/L (22-29); Chloride 108 mmol/L (98-107); Glucose 66 mg/dL (65-115); Magnesium 1.9 mg/dL (1.7-2.3); Phosphorus 2.8 mg/dL (2.5-4.5); Sodium 142 mmol/L (136-145)
[2025-01-07 05:24] LABS: Anion Gap 17.3 (5-19); Potassium 3.3 mmol/L (3.5-5.1)
[2025-01-07 05:52] LABS: Slide Review Slide Review Perform
[2025-01-07 05:53] LABS: Absolute Neutrophil 16.2 10^3/cmm (1.4-6.5); Absolute Segmented Neutrophil 12.8 10/cmm (1.6-7.1); Band Neutrophils Absolute 3.3 10^3/cmm (0.0-1.2); Eosinophils 0 %; Lymphocytes 9 %; Monocytes Absolute 0.7 10^3/cmm (0.1-0.6); Platelet Estimate Decreased (Normal); Segmented Neutrophils 69 %; Total Cells Counted 100 (0-100)
[2025-01-07] MEDS: isosorbide mononitrate ER 30 mg Tablet PO (08:26)
[2025-01-07] MEDS: metoprolol tartrate 25 mg Tablet PO (08:26)
[2025-01-07] MEDS: pantoprazole DR 40 mg Tablet PO (08:26)
[2025-01-07] MEDS: clopidogrel 75 mg Tablet PO (08:26)
[2025-01-07] MEDS: aspirin 81 mg EC Tablet PO (08:26)
[2025-01-07] MEDS: gabapentin 400 mg Capsule 800 MG PO (08:26)
[2025-01-07] MEDS: desvenlafaxine 50 mg Tablet 100 MG PO (08:26)
[2025-01-07] MEDS: heparin 5,000 unit/mL INJ 1 mL 5000 UNIT SUBCUT (08:27)
[2025-01-07] MEDS: amlodipine 5 mg Tablet PO (08:27)
[2025-01-07] MEDS: atorvastatin 40 mg Tablet PO (08:27)
[2025-01-07] MEDS: docusate sodium 100 mg Capsule PO (08:27)
[2025-01-07] MEDS: HYDROcodone-acetaminophen 10-325 mg Tablet 1 TAB PO (08:29)
--- NOTE | 2025-01-07 13:14 | PM.DCS ---
Discharge Providers Date of Admission: 01/05/25 23:31 Date of Discharge: January 07, 2025 Attending Provider at Admission: Alona Yoo MD Attending Provider at Discharge: Elisa Sanders MD Primary Care Provider: Jerry Holloway MD Diagnoses at Discharge Discharge Diagnosis (1) Ehrlichiosis chafeensis (E. chafeensis): Status: Acute (2) Acute UTI: Status: Acute (3) At high risk for tick borne illness: Status: Acute (4) Elevated lactic acid level: Status: Acute (5) Dehydration: Status: Acute (6) LEEANNE (acute kidney injury): Status: Acute (7) HTN (hypertension): Status: Acute Qualifiers: Hypertension type: essential hypertension Qualified Code(s): I10 - Essential (primary) hypertension Reason for Visit Reason for Visit: n/v/d/f, shakes, nose bleeds, dizzy, confusion Brief History: This is a 69-year-old female with history of hypertension, hyperlipidemia, history of CVA, COPD, RYNE on CPAP, anxiety, depression, chronic back pain, and GERD with fever, chills, malaise, nausea. She was also tachycardic in the ED. She reported an engorged tick bite 5 days prior to admission. Labs showed leukopenia and thrombocytopenia that was concerning for tickborne illness particularly Ehrlichia. She also had a UTI and LEEANNE. Her lactic acid was elevated. Hospital Course Hospital Course She was started on doxycycline and ceftriaxone for her UTI and suspected tickborne illness. Blood culture grew E. coli which is most likely from her urine. Tick panel is pending. Her LEEANNE and lactic acidosis resolved with IV fluids. She also had hypernatremia, hypokalemia, hypophosphatemia, and hypomagnesemia. These were corrected. She was feeling well at the discharge and was discharged home in stable condition. Physical Exam Const: COMMON NORMALS: no acute distress and patient oriented x3 HENMT: COMMON NORMALS: normocephalic, atraumatic and moist oral mucous membranes HEAD & SCALP: normocephalic and atraumatic Eye: COMMON NORMALS: Equal, round and reactive pupils present, EOMs intact bilaterally and conjunctivae normal CONJUNCTIVA: Yes conjunctivae normal PUPIL: Yes Equal, round and reactive pupils present Neck/C-Spine: COMMON NORMALS: supple and no JVD Chest: COMMONS NORMALS: normal inspection of the chest Resp: COMMON NORMALS: normal respiratory effort Cardio: COMMON NORMALS: no JVD, regular rate, regular rhythm, S1 normal heart sound present, S2 normal heart sound present and No murmurs present (Cardio) RATE: regular rate RHYTHM: regular rhythm HEART SOUNDS: S1 normal heart sound present and S2 normal heart sound present GI: COMMON NORMALS: Normal to inspection, nondistended, normoactive bowel sounds present : COMMON NORMALS: Yes no CVA tenderness BLADDER/KIDNEY EXAM: Yes no CVA tenderness Back/Pelvis: COMMON NORMALS: no CVA tenderness Extremity: COMMON NORMALS: normal to inspection, full ROM and no pedal edema Neuro: COMMON NORMALS: patient oriented x3 Skin: COMMON NORMALS: no rashes or lesions noted GENERAL SKIN EXAM: no rashes or lesions noted Discharge Data Studies Completed and Pending Completed Studies During Hospitalization Category Date Time Status XR chest 1V portable [id number] Stat Exams 01/05/25 18:24 Completed Pending at discharge Category Date Time Status Blood Culture Stat Lab 01/05/25 19:10 Results Blood Culture Stat Lab 01/06/25 17:46 Results Tick Panel Stat Lab 01/05/25 05:41 Received Urine Culture Routine Lab 01/06/25 09:51 Received Radiology Impressions Chest X-Ray 01/05/25 18:24 IMPRESSION: No acute findings. Laboratory Results WBC 18.57 10^3/uL (3.29-11.43) H 01/07/25 04:19 RBC 3.97 10^6/uL (3.85-5.65) 01/07/25 04:19 Hgb 11.30 g/dL (11.27-16.99) 01/07/25 04:19 Hct 34.6 % (36-47) L 01/07/25 04:19 MCV 87.2 fl (85-98) 01/07/25 04:19 MCH 28.5 pg (27-33) 01/07/25 04:19 MCHC 32.7 g/dL (30-55) 01/07/25 04:19 RDW 13.3 % (12.1-15.1) 01/07/25 04:19 Plt Count 94 10^3/cmm (157-399) L 01/07/25 04:19 MPV 10.4 fL (7.4-10.4) 01/07/25 04:19 Neut % (Auto) 96.7 % 01/06/25 05:41 Lymph % (Auto) Not Reportable 01/07/25 04:19 [place] % (Auto) Not Reportable 01/07/25 04:19 Eos % (Auto) 0.0 % 01/06/25 05:41 Baso % (Auto) 0.3 % 01/06/25 05:41 Neut # (Auto) 17.15 10^3/uL (1.8-7.7) H 01/06/25 05:41 Lymph # (Auto) Not Reportable 01/07/25 04:19 [place] # (Auto) Not Reportable 01/07/25 04:19 Eos # (Auto) 0.0 10^3/uL (0.0-0.8) 01/06/25 05:41 Baso # (Auto) 0.1 10^3/uL (0.0-0.1) 01/06/25 05:41 Nucleated RBC % (auto) 0 % 01/06/25 05:41 Total Counted 100 (0-100) 01/07/25 04:19 Atypical Lymphs % Not Reportable 01/07/25 04:19 Absolute Neutrophils 16.2 10^3/cmm (1.4-6.5) H 01/07/25 04:19 Segmented Neutrophils 69 % 01/07/25 04:19 Band Neutrophils 18.0 % 01/07/25 04:19 Lymphocytes (Manual) 9 % 01/07/25 04:19 Monocytes (Manual) 4.0 % 01/07/25 04:19 Absolute Monocytes 0.7 10^3/cmm (0.1-0.6) H 01/07/25 04:19 Eosinophils (Manual) 0 % 01/07/25 04:19 Absolute Eosinophils 0.0 10^3/cmm (0.0-0.7) 01/07/25 04:19 Basophils (Manual) 0.0 % 01/07/25 04:19 Absolute Basophils 0.0 10^3/cmm (0.0-0.2) 01/07/25 04:19 Nucleated RBCs # 0.0 /100WBC 01/06/25 05:41 Platelet Estimate Decreased (Normal) L 01/07/25 04:19 Sodium 142 mmol/L (136-145) 01/07/25 04:19 Potassium 3.3 mmol/L (3.5-5.1) L 01/07/25 04:19 Chloride 108 mmol/L (98-107) H 01/07/25 04:19 Carbon Dioxide 20 mmol/L (22-29) L 01/07/25 04:19 Anion Gap 17.3 (5-19) 01/07/25 04:19 BUN 17 mg/dL (8-23) 01/07/25 04:19 Creatinine 1.0 mg/dL (0.5-0.9) H 01/07/25 04:19 GFR Calculation 55.0 mL/min (90-130) L 01/07/25 04:19 Glucose 66 mg/dL (65-115) 01/07/25 04:19 Estimat Average Glucose 117 01/06/25 05:41 Hemoglobin A1c 5.7 % (4.0-6.0) 01/06/25 05:41 Calculated Osmolality 308 mOsm/kg (285-295) H 01/06/25 05:41 Lactic Acid 4.2 mmol/L (0.5-2.2) H* 01/06/25 05:41 Lactic Acid (Sepsis) 3.0 mmol/L (0.5-2.2) H 01/06/25 09:19 Calcium 8.9 mg/dL (8.5-10.5) 01/07/25 04:19 Phosphorus 2.8 mg/dL (2.5-4.5) D 01/07/25 04:19 Magnesium 1.9 mg/dL (1.7-2.3) 01/07/25 04:19 Total Bilirubin 0.2 mg/dL (0.15-1.2) 01/06/25 05:41 AST 94 U/L (0-32) H 01/06/25 05:41 ALT 81 U/L (0-33) H 01/06/25 05:41 Alkaline Phosphatase 91 U/L (35-105) 01/06/25 05:41 NT-Pro-B Natriuret Pep 7309 pg/mL (0-125) H 01/06/25 05:41 Total Protein 6.6 g/dL (6.6-8.7) 01/06/25 05:41 Albumin 3.7 g/dL (3.5-5.2) 01/07/25 04:19 Globulin 2.9 g/dL (1.3-4.6) 01/06/25 05:41 Triglycerides 126 mg/dL (0-150) 01/06/25 05:41 Cholesterol 120 mg/dL (0-200) 01/06/25 05:41 LDL Cholesterol, Calc 59 mg/dL (50-129) 01/06/25 05:41 HDL Cholesterol 36 mg/dL (60-100) L 01/06/25 05:41 LDL/HDL Ratio 1.64 RATIO (0.00-3.22) 01/06/25 05:41 Cholesterol/HDL Ratio 3.33 mg/dL (0.0-4.40) 01/06/25 05:41 Lipase 33 U/L (13-60) 01/05/25 19:08 Urine Color Yellow (Yellow) 01/05/25 22:05 Urine Appearance Clear (CLEAR) 01/05/25 22:05 Urine pH 5.5 (5-7) 01/05/25 22:05 Ur Specific [place] 1.008 (1.005-1.030) 01/05/25 22:05 Urine Protein Negative (Negative) 01/05/25 22:05 Urine Glucose (UA) Negative (Normal) 01/05/25 22:05 Urine Ketones Negative (Negative) 01/05/25 22:05 Urine Blood Negative (Negative) 01/05/25 22:05 Urine Nitrate Positive (Negative) A 01/05/25 22:05 Urine Bilirubin Negative (Negative) 01/05/25 22:05 Urine Urobilinogen 0.2 mg/dL (Negative) 01/05/25 22:05 Ur Leukocyte Esterase Trace (Negative) A 01/05/25 22:05 Urine RBC 0-2 /hpf (0-2) 01/05/25 22:05 Urine WBC 6-10 /hpf (0-5) 01/05/25 22:05 Ur Squamous Epith Cells 0-5 /hpf (0-5) 01/05/25 22:05 Amorphous Sediment Not Reportable 01/05/25 22:05 Urine Bacteria 4+ /hpf (NONE) H 01/05/25 22:05 Hyaline Casts 0.40 /lpf 01/05/25 22:05 Influenza A (PCR) Negative (Negative) 01/05/25 20:00 Influenza Type B (PCR) Negative (Negative) 01/05/25 20:00 RSV (PCR) Negative (Negative) 01/05/25 20:00 SARS-CoV-2 (PCR) Negative (Negative) 01/05/25 20:00 Vitals Last Vital Signs Temp 98.3 F 01/07/25 12:00 Pulse 87 01/07/25 12:00 Resp 17 01/07/25 12:00 BP 97/60 01/07/25 12:00 Pulse Ox 94 01/07/25 12:00 O2 Del Method Room Air 01/07/25 12:00 Discharge Plan Discharge Patient Disposition: Home Condition: Stable Prescriptions: New doxycycline monohydrate 100 mg Tablet 100 mg PO BID 8 Days Qty: 16 0RF Continued hydrocodone-acetaminophen 10-325 mg tablet 1 tab PO Q6H PRN (Reason: Pain) celecoxib 200 mg capsule 200 mg PO BID gabapentin 800 mg tablet 800 mg PO TID aspirin [Adult Low Dose Aspirin] 81 mg tablet,delayed release (DR/EC) 81 mg PO DAILY amlodipine 5 mg tablet 5 mg PO DAILY nitroglycerin 0.4 mg tablet, sublingual 0.4 mg SUBLINGUAL Q5M PRN (Reason: chest pain) Qty: 30 6RF clopidogrel 75 mg tablet 75 mg PO DAILY Qty: 90 3RF isosorbide mononitrate 30 mg tablet extended release 24 hr 30 mg PO BID Qty: 180 3RF atorvastatin 40 mg tablet 40 mg PO DAILY Qty: 90 3RF metoprolol tartrate 25 mg tablet 25 mg PO BID Qty: 180 3RF albuterol sulfate 90 mcg/actuation HFA aerosol inhaler 2 puff INHALATION QID PRN (Reason: Shortness Of Breath) desvenlafaxine succinate 100 mg tablet extended release 24 hr 100 mg PO DAILY Held losartan 50 mg tablet 100 mg PO DAILY Qty: 90 3RF Hold Instructions: Resume on 01/11/25. Monitor BP at home. Hold losartan if BP still <100/60 Discharge Orders: Discharge Order (Routine); Ordered 01/07/25 Ordered By: Elisa Sanders Referrals: Jerry Holloway MD [Primary Care Provider, Family Practice] - 01/12/25 4:45 pm Discharge Diet: Regular Discharge Activity: Resume usual activity Patient Instructions: Doxycycline (By mouth), Dehydration (GEN), Lyme Disease (GEN), Acute Kidney Injury (GEN), Opioid Safety, Pain Management Discharge Attestations Time Spent in Discharge Care*: greater than 30 min Quality Metrics Clinical Quality Measures [ No reported AMI, CVA or VTE this stay] Coding Level of Care Code 22509 Diagnoses Ehrlichiosis chafeensis (E. chafeensis) A77.41 Acute UTI N39.0 At high risk for tick borne illness Z91.89 Elevated lactic acid level R79.89 Dehydration E86.0 LEEANNE (acute kidney injury) N17.9 Essential hypertension I10 Hypertension type: essential hypertension
[2025-01-07] MEDS: doxycycline 100 mg Tablet PO (13:21)
[2025-01-07 15:31] LABS: Lyme AB Screen <0.90 index
== END 2025-01-07 13:30 | disposition home or self-care (01) | DRG 868 ==
LOC: ER 01-06 00:50 → MEDSURG 01-06 01:52
PROVIDERS: Emergency Medicine; Admitting Provider Internal Medicine; Emergency Provider Nurse Practitioner; PCP Family Medicine; Visit Provider Student in an Organized Health Care Education/Training Program
DX: A77.41 Ehrlichiosis chaffeensis [E. chaffeensis] (principal); E87.0 Hyperosmolality and hypernatremia; E87.20 Acidosis, unspecified; N39.0 Urinary tract infection, site not specified; N17.9 Acute kidney failure, unspecified; I69.354 Hemiplegia and hemiparesis following cerebral infarction affecting left non-dominant side; B96.20 Unspecified Escherichia coli [E. coli] as the cause of diseases classified elsewhere; E86.0 Dehydration; I10 Essential (primary) hypertension; E78.5 Hyperlipidemia, unspecified; G62.9 Polyneuropathy, unspecified; J44.9 Chronic obstructive pulmonary disease, unspecified; G47.33 Obstructive sleep apnea (adult) (pediatric); Z99.89 Dependence on other enabling machines and devices; F41.9 Anxiety disorder, unspecified; F32.A Depression, unspecified; G89.29 Other chronic pain; M54.9 Dorsalgia, unspecified; K21.9 Gastro-esophageal reflux disease without esophagitis; R00.0 Tachycardia, unspecified; D69.6 Thrombocytopenia, unspecified; D64.9 Anemia, unspecified; F17.290 Nicotine dependence, other tobacco product, uncomplicated; E89.0 Postprocedural hypothyroidism; Z79.02 Long term (current) use of antithrombotics/antiplatelets; Z79.82 Long term (current) use of aspirin; Z79.891 Long term (current) use of opiate analgesic; E83.42 Hypomagnesemia; E83.39 Other disorders of phosphorus metabolism; E87.6 Hypokalemia
CPT/HCPCS: 36415; 71045; 80053; 80061; 80069; 81001; 83036; 83605; 83690; 83735; 83880; 84100; 85007; 85025; 86618; 86666; 86757; 87040; 87077; 87086; 87150; 87186; 87205; 87637; 93005; 96365; 96372; 96375; 97116; 97161; 97165; 99285; J0696; J1644; J2270; J3475; J3490; J7030; J7070; J9999